=== PATIENT | female | born 1990 | race Caucasian/White ===

== ENCOUNTER → 2016-11-19 | Outpatient (CLI) | payer BC, OTHER ==
[~2016-11-19] MED LIST: BCPILLS PO; INSUINJ12 PO; KFL500 PO; LEVE500T26 PO; LEVO75TA PO; MESA1.2T PO; MGNO400 PO; NVLGI SC; OPTIRAY 320 IV PRN; OXYB5TAB74 PO; POTA20TA16 PO; RXC5 PO; URSO300C4 PO
[2016-11-19 16:00] LABS: ISTAT CREATININE 0.3 mg/dl (0.6-1.3); ISTAT HEMOGLOBIN 12.2 g/dl (12.0-16.0); ISTAT IONIZED CALCIUM 1.17 mmol/l (1.12-1.32)
--- NOTE | 2016-11-19 16:45 | DIAGNOSTIC IMAGING REPORT ---
CT ABD/PELVIS IV AND ORAL CONT CLINICAL HISTORY: Abdominal pain. Possible pseudocyst. COMPARISON STUDY: 02/18/2015 TECHNIQUE: Following the IV administration of 119 mL of Optiray-320, CT scan of the abdomen and pelvis was performed from the lung bases to the proximal femurs. Images are reviewed in the axial, sagittal, and coronal planes. IV contrast was administered without complication. A dose lowering technique was utilized adhering to the principles of ALARA. CT DOSE: 239.16 mGy.cm FINDINGS: Lower chest: The heart is normal in size and configuration, without pericardial effusion. The lung bases and pleural spaces are clear. Liver: There is a right posterior pericapsular fluid collection measuring 8 cm in diameter. This contains the distal portion of a shunt catheter, and likely represents a shunt related pseudocyst. Gallbladder: Unremarkable. Spleen: The spleen is markedly enlarged measuring 14 cm in length. There are extensive perisplenic varices. Pancreas: The pancreas appears atrophic or fatty-replaced. Adrenal glands: Difficult to visualize. No definite abnormalities. Kidneys: Somewhat limited evaluation due to artifact from spinal hardware. The upper pole of the right kidney is deformed due to the shunt catheter related pseudocyst Bowel: There are no transition zones indicate bowel obstruction. There is diffuse submucosal colonic fat hypertrophy versus edema, most pronounced within the ascending colon.. Peritoneum: There is no intraperitoneal free air or abdominal ascites. Vasculature: The abdominal aorta is normal in course and caliber. Adenopathy: None. 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 There are extensive postsurgical changes present within the spine. 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 There is a scoliosis. IMPRESSION: 1. 8 cm right-sided shunt catheter related pseudocyst with secondary deformity of the upper pole the right kidney and capsular deformity of the posterior aspect of the liver 2. Marked splenomegaly with extensive perisplenic varices 3. Bladder distention with multiple small bladder calculi 4. Diffuse colonic wall edema versus submucosal colonic fat hypertrophy Electronically signed by: Benedict Villeda M.D. 11/19/2016 4:44 PM Dictated Date/Time: 11/19/2016 4:32 PM
== END | disposition home or self-care (01) ==
LOC: C.CTS 14:25
PROVIDERS: ATTEND Neurological Surgery
DX: N28.89 Other specified disorders of kidney and ureter (principal); K76.89 Other specified diseases of liver; R16.1 Splenomegaly, not elsewhere classified; N21.0 Calculus in bladder; R93.3 Abnormal findings on diagnostic imaging of other parts of digestive tract

== ENCOUNTER → 2016-12-14 | Outpatient (CLI) | payer BC, OTHER ==
[~2016-12-14] MED LIST changes: -OPTIRAY 320 IV PRN
== END | disposition home or self-care (01) ==
LOC: C.LABSPEC 10:56
PROVIDERS: ATTEND Family Medicine
DX: Z01.818 Encounter for other preprocedural examination (principal)

== ENCOUNTER → 2017-01-12 | Outpatient (CLI) | payer BC, OTHER ==
[~2017-01-12] MED LIST changes: +DTR/5 PO; -OXYB5TAB74 PO
--- NOTE | 2017-01-12 10:30 | DIAGNOSTIC IMAGING REPORT ---
HEAD WITHOUT CONTRAST (CT) CT DOSE: 638.56 mGycm HISTORY: Hydrocephalus G91.9 TECHNIQUE: Multiaxial CT images of the head were performed without the use of intravenous contrast. A dose lowering technique was utilized adhering to the principles of ALARA. Comparison: None. Findings: The paranasal sinuses and mastoid air cells are clear. Evidence for ventriculostomy catheter entering from the right parietal vertex with the tip medially between the lateral ventricles near the foramen of Leonard. No evidence for hydrocephalus. 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 Potential suboccipital craniotomy. No evidence for midline shift. No acute intracranial hemorrhage. Impression: Congenital and postoperative changes. No acute intracranial abnormality. No evidence hydrocephalus. The above report was generated using voice recognition software. It may contain grammatical, syntax or spelling errors. Electronically signed by: Pradip Winchester M.D. 01/12/2017 10:29 AM Dictated Date/Time: 01/12/2017 10:27 AM
== END | disposition home or self-care (01) ==
LOC: C.CTS 10:03
PROVIDERS: ATTEND Neurological Surgery
DX: G91.9 Hydrocephalus, unspecified (principal); Z98.890 Other specified postprocedural states

== ENCOUNTER → 2017-02-10 | Outpatient (CLI) | payer BC, OTHER ==
--- NOTE | 2017-02-10 09:27 | DIAGNOSTIC IMAGING REPORT ---
ABDOMEN AND PELVIS CT WITHOUT CONTRAST CT DOSE: 348.30 mGy.cm HISTORY: Concern for possible shunt malfunction. HYDROCEPHALUS, SPVP SHUNT W/O CONTRAST MD ORDER TECHNIQUE: Multiaxial CT images of the abdomen and pelvis were performed without contrast. A dose lowering technique was utilized adhering to the principles of ALARA. COMPARISON STUDY: CT abdomen and pelvis 11/19/2016. FINDINGS: Lung bases are generally clear. There is no pneumatosis or pneumoperitoneum identified. The imaged inferior cardiac chambers are unremarkable. Evaluation of the solid abdominal organs is limited secondary to lack of intravenous contrast and also secondary to streak artifact from extensive posterior jorge a and screw fusion hardware of the thoracolumbar spine which demonstrates no evidence of hardware complication. Liver, and gallbladder are unremarkable. The pancreas demonstrates no focal abnormality, however is not well seen secondary to large extensive perisplenic varices. Adrenal glands are also difficult to evaluate. Splenic vein again seen measuring up to 15.3 x 10.1 cm. There is trace perisplenic and pelvic ascites. Pseudocyst posterior to the right lobe the liver has decreased in size, previously 8.2 x 5.7 cm, now measuring 6.0 x 1.8 cm. Shunt catheter has been repositioned and now terminates within the left lower pelvis. No associated pseudocyst near the distal catheter. No catheter discontinuity identified. Multifocal cortical lobulation with cortical thinning and atrophy of the kidneys are noted. There is limited dilation of the left kidney secondary to streak artifact. There appears to be retained contrast within the collecting system on the left. Multifocal wall thickening of the urinary bladder is noted with dependent bladder calculi again seen measuring up to 4 mm. Uterus and adnexa are unremarkable. No aortic aneurysm identified. There is no bowel obstruction identified. Diffuse colonic wall edema or mural fibrofatty changes of the bowel are again seen which appear unchanged. Moderate stool volume suggests constipation. Postoperative changes suggest prior appendectomy. There is severe atrophy of the gluteal, thigh and paraspinal musculature suggesting auditory state. Nonspecific subcutaneous stranding adjacent to the bilateral thighs appears unchanged. The bones appear to be osteopenic. Incomplete bony fusion involving the sacrum suggest spinal dysraphism. Posterior decompression changes of the spine are noted along with sigmoidal scoliosis. Chronic remodeling changes of the hips with subluxation. IMPRESSION: 1. Decreased size of the pseudocyst posterior to the right hepatic lobe, now measuring 6 cm. Shunt catheter terminates within the left lower pelvis with mild adjacent pelvic ascites. No new pseudocyst identified. 2. Marked splenomegaly with extensive perisplenic varices redemonstrated. 3. Wall thickening of the urinary bladder with dependent bladder calculi again seen. Correlate with urinalysis. 4. Additional chronic changes as above. Electronically signed by: Tavo Mckeon M.D. 02/10/2017 9:26 AM Dictated Date/Time: 02/10/2017 9:16 AM
== END | disposition home or self-care (01) ==
LOC: C.CTS 08:44
PROVIDERS: ATTEND Neurological Surgery
DX: G91.9 Hydrocephalus, unspecified (principal); Z98.2 Presence of cerebrospinal fluid drainage device